=== PATIENT | female | born 1960 | race Caucasian/White ===

== ENCOUNTER → 2016-11-26 | Outpatient (CLI) | payer MEDICAID ==
[2016-11-08 17:03] VITALS: BP 123/85
--- NOTE | 2016-11-26 15:39 | MRI ---
MRI OF THE ABDOMEN WITHOUT IV CONTRAST Clinical indication: Hematuria Procedure: Multiplanar multi sequence MRI of the abdomen were obtained without the administration of intravenous contrast according to standard departmental protocol. Comparisons: None Findings: No significant iron or fat deposition in the liver or spleen. No significant ascites. Liver and spleen are normal in appearance. No focal lesions. Gallbladder absent. No ductal dilatatio n. Pancreas demonstrates normal T1 signal. No pancreatic masses. Adrenal glands are normal. Kidneys demonstrate normal cortical medullary differentiation. No hydronephrosis. Visualized bowel is unrema rkable. No suspicious lymph nodes. Impression: 1. No significant abnormalities. 2. It should be noted that evaluation for solid organ mass, including sources of hematuria such as r enal mass, is limited in the absence of intravenous contrast. Reported By:
== END ==
LOC: RAD 10:43
PROVIDERS: ATTEND Obstetrics & Gynecology Obstetrics
DX: R31.9 Hematuria, unspecified (principal)
CPT/HCPCS: 74181